=== PATIENT | male | born 1970 | race Caucasian/White ===

== ENCOUNTER 2016-08-22 18:54 | Emergency (ER) | payer OTHER ==
[~2016-08-22] VITALS: Ht 185.4 cm; Wt 89.0 kg
[~2016-08-22 18:54] MED LIST: AMOX500C5 PO; ATOR40TA2 PO; CEPH-331 PO; CHLO500T4 PO; CLOR7.5T49 PO; DULO20CA18 PO; HYDR-3702 PO; NO HOME MEDS; TRM50T PO
--- OUTSIDE RECORDS SUMMARY | 2016-08-22 18:58 | XMS REPORT ---
Author Author Griselda Carr [facility] Address [address] [place], [place] [id number] Care Team Providers Care Manager Bilingual Name Role Phone Griselda Carr Unavailable [phone] PROBLEMS Type Condition ICD9-CM Code [id number] Code Onset Dates Condition Status SNOMED Code Problem Overweight (BMI 25.0-29.9) E66.3 Active 356676880 Problem Elevated BP I10 Active 91038897 Problem Essential (primary) hypertension I10 Active 70328004 Problem OCD (obsessive compulsive disorder) F42 Active 756193134 Problem HLD (hyperlipidemia) E78.5 Active 73133094 Problem GERD (gastroesophageal reflux disease) K21.9 Active 554322020 Problem AARON (generalized anxiety disorder) F41.1 Active 31199037 Problem Major depression F32.9 Active 139526743 ALLERGIES Unknown Allergies SOCIAL HISTORY No smoking Hx information available PLAN OF CARE VITAL SIGNS MEDICATIONS Unknown Medications RESULTS No Results PROCEDURES No Known procedures IMMUNIZATIONS No Known Immunizations
[2016-08-22] MEDS ORDERED: diphenhydrAMINE 50 MG/ML INJ (BENADRYL) IV ONE (19:50)
[2016-08-22 20:07] LABS: BASOPHILS % (AUTO) 0 % (0-2); EOSINOPHILS # (AUTO) 0.1 10^3uL; EOSINOPHILS % (AUTO) 1 % (0-4); LYMPHOCYTES # (AUTO) 2.2 X10^3; MEAN CORPUSCULAR HGB CONC 34.5 g/dL (31.0-37.0); MEAN PLATELET VOLUME 9.3 FL (6.0-9.5); MONOCYTES # (AUTO) 0.6 X10^3; MONOCYTES % (AUTO) 10 % (3-11); NEUTROPHILS # (AUTO) 3.2 X10^3; NEUTROPHILS % (AUTO) 53 % (51-67); PLATELET COUNT 248 10^3uL (150-450); WHITE BLOOD COUNT 6.04 10^3uL (4.0-11.0)
[2016-08-22 20:09] LABS: MEAN CORPUSCULAR HEMOGLOBIN 26.3 PG (26.0-34.0); MEAN CORPUSCULAR VOLUME 76 FL (80-100)
[2016-08-22 20:14] LABS: ANION GAP 17.1 MEQ/L (3-15); CALCULATED IONIZED CALCIUM 3.9 mg/dL (3.8-4.6)
--- NOTE | 2016-08-22 21:22 | NUR ---
Checked on pt, IV fluids are in, pt appears to be comfortable at this time, states that he is sleepy. Still unable to give ua
[2016-08-22 22:43] LABS: BILIRUBIN,URINE Negative (Negative); CLARITY,URINE Clear; COLOR,URINE Yellow; GLUCOSE, URINE (UA) Negative (Negative); LEUKOCYTE ESTERASE ,URINE Negative (Negative); PH,URINE 6.5 (5.0 - 8.0); UROBILINOGEN,URINE 0.2 mg/dL (0.2-1.0)
[2016-08-22 23:20] VITALS: BP 130/69
== END 2016-08-22 23:15 | disposition home or self-care (01) ==
LOC: ED 18:59
DX: R19.7 Diarrhea, unspecified (principal); F17.210 Nicotine dependence, cigarettes, uncomplicated
CPT/HCPCS: 36415; 80053; 81003; 83690; 85025; 96361; 96374; 99284; J1200; J7030; 99282